=== PATIENT | female | born 1995 | race Caucasian/White ===

== ENCOUNTER 2024-10-22 14:09 | Outpatient (RCR) | payer BC, SELFPAY | END 2025-01-15 17:50 | disposition other institution (70) | LOC: ANHOBOP 14:09 | PROVIDERS: PCP Nurse Practitioner Family; Visit Provider Obstetrics & Gynecology | DX: O36.8130 Decreased fetal movements, third trimester, not applicable or unspecified (principal); Z3A.29 29 weeks gestation of pregnancy | CPT/HCPCS: 59025 ==

== ENCOUNTER 2024-10-28 05:24 | Observation (INO) | payer BC, SELFPAY ==
--- NOTE | ~2024-10-28 | US_ITS ---
Limited Abdominal Sonogram: Real-time sonographic imaging of the right upper quadrant was performed. Clinical History: Abdominal pain Findings: The liver appears normal with no evidence of mass lesion or bile duct dilatation. Main por angelica vein demonstrates normal direction of flow. The gallbladder is well distended, and contains small stones/sludge. The common bile duct measures 5 mm. The visualized pancreas, aorta, and IVC are unre markable. Right kidney measures 10.1 cm in length with probable minimal hydronephrosis. Impression: Cholelithiasis and gallbladder sludge. Minimal right hydronephrosis. Reviewed, dictated and finalized at location . Impression: Cholelithiasis and gallbladder sludge. Minimal right hydronephrosis.
--- OUTSIDE RECORDS SUMMARY | 2024-10-28 05:33 | XMS_ITS | Patient Health Record ---
Author Organization [facility] Address [address] [place] [address] Care Team Providers Care Avionics Systems Technician Name Role Phone Ariana Pinon Primary Care Provider Allergies No Known Allergies Reason For Referral No Information Medications Medication SIG (Take, Route, Frequency, Duration) Notes Start Date End Date Status Venlafaxine HCl ER 75 MG 1 tablet with f ood Orally Once a day; Duration: 21 days Active FLUoxetine HCl 10 MG 1 capsule Orally On ce a day; Duration: 30 days 11/04/2022 Active Venlafaxine HCl ER 37.5 MG 1 capsule wit h food Orally Once a day; Duration: 14 days 11/04/2022 Active Ergocalciferol 1.25 MG (23322 UT) 1 capsule Orally once a week; Duration: 30 days Active Social History Sex Assigned At : Social History Observation Description Sex Assigned At Female Problems Problem Type SNOMED Code ICD Code Onset Dates Problem Status W/U Status Risk Notes Problem Obsessive-com pulsive disorder (430149695) 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
--- OUTSIDE RECORDS SUMMARY | 2024-10-28 05:33 | XMS_ITS | Clinical Summary ---
Author Organization [facility] Address [address] [place] [address] Care Team Providers Care Service Engineer Name Role Phone Nkechi Powell BAKERY WORKER Primary Care Provider [phone] Allergies No known active allergies Medications Magnesium Gluconate (MAGNESIUM 27 OR) Take as directed. Active vitamin ( PLUS) 27-1 MG tablet Take 1 tablet by mouth daily. Active Active Problems Problem Noted Date Diagnosed Date Mixed obsessional thoughts and acts 04/17/2017 PCOS (polycystic ovarian syndrome) 04/17/2014 Estimated Date of Delivery Comme nts Yes 01/04/2025 Resolved Problems Problem Noted Date Diagnosed Date Resolved Date Closed fracture of lower end of left radius with routine healing 09/19/2019 12/30/2022 Encounters Date Type Department Care Team Description 10/01/2024 Scan [facility] INFO SRVCS Scanned, Doc Med Group from Last 3 Months Immunizations Immunization Administration Dates Next Due Tdap (Adacel) 06/09/2019 Family History Medical History Relation Comments No Known Problems Brother 1 No Known Problems Brother 2 Eating disorder Brother 3 Premature CHD Brother 3 Arthritis Father Alzheimers Maternal Grandfather Hypertension Maternal Grandfather CHF Maternal Grandmother Diabetes Maternal Grandmother Anxiety Mother Diabetes Mother Hypertension Mother Relation Status Comments Brother 1 Alive Brother 2 Alive Brother 3 Alive Father Maternal Grandfather Maternal Grandmother Mother Alive Sister Alive Social History Tobacco Use Types Packs/Day Years Used Date Smoking Tobacco: Never Smokeless Tobacco: Never Tobacco Cessation:Counseling Given: Not Answered Alcohol Use Standard Drinks/Week Comments Yes 0 (1 standard drink = 0.6 oz pur e alcohol) rare PHQ-2 Answer Date Recorded Patient Health Questionnaire-2 Score 0 05/22/2024 Estimated Date of Delivery Comme nts Yes 01/04/2025 Sex and Gender Information Value Date Recorded Sex Assigned at Not on file Legal Sex Female 4:05 PM MILLSTONE CLE[employer]ER Gender Identity Not on file Sexual Orientation Not on file Last Filed Vital Signs Vital Sign Reading Time Taken Comments Blood Pressure 112/76 07/12/2024 9:32 PM CDT Pulse 92 07/12/2024 9:32 PM CDT Temperature 36.7 C (98 F) 07/12/2024 9:32 PM CDT Respiratory Rate 16 07/12/2024 9:32 PM CDT Oxygen Saturation 98% 07/12/2024 9:32 PM CDT Inhaled Oxygen Concentration - - Weight 59.4 kg (131 lb) 07/12/2024 9:32 PM CDT Height 172.7 cm (5' 8) 07/12/2024 9:32 PM CDT Body Mass Index 19.92 07/12/2024 9:32 PM CDT Plan of Treatment Health Maintenance Due Date Last Done Comments Cervical Cancer Screening Pa p Smear (Age 21 to 29) Every 3 Years 1995 Cervical Cancer Screening 1995 Annual Physical 1998 Hepatitis C 2013 Hepatitis B Vaccines (1 of 3 - 19+ 3-dose series) 2014 COVID-19 Vaccine (2023-2 5 season) 2023 DTaP, Tdap and Td Vaccines ( 2 - Td or Tdap) 06/09/2029 06/09/2019 PHQ-2 (Physician Grayling) Completed 05/22/2024 HPV Vaccines Aged Out No longer eligi ble based on patient's age to complete this topic Meningococcal B Vaccine Aged Out No l onger eligible based on patient's age to complete this topic Meningococcal Vaccine Aged Out No angela grisel eligible based on patient's age to complete this topic Pneumococcal Vaccine: Pediat rics (0 to 5 Years) and At-Risk Patients (6 to 49 Years) Aged Out No longer eligi ble based on patient's age to complete this topic RSV Immunization or 60+ Years (No Doses Required) Completed RSV Immunizations Under 20 Months Aged Out No longer eligible based on patient's age to complete this topic Insurance [place] [address] [place] [address] Care Teams Service Engineer Relationship Specialty Start Date End Date Nkechi Powell FNP [address] [place] [address] [place] [address] PCP - General Nurse Practitioner Family 12/30/22
[2024-10-28 06:01] VITALS: BP 104/59; PULSE 71
[2024-10-28 06:15] VITALS: BP 112/68; PULSE 88
[2024-10-28 06:31] VITALS: BP 100/61; PULSE 84
[2024-10-28 06:42] VITALS: BMI 21.4
--- NOTE | 2024-10-28 06:43 | OBADM ---
This patient, Barbara Iniguez, admitted to the OB room OB Post 117 for observation. Patient/family oriented to hospital policies and general routines including ID bracelet, bed and alarms, visiting hours, pain management, procedures, bathroom and other care routines, personal items, smoking policy, room service/diet, and visiting hours. Patient/Family are encouraged to report perceived risks to care and to ask questions if they do not understand what they are told or what they should do.
[2024-10-28 06:44] LABS: Hematocrit 33.0 % (37.0-47.0); Hemoglobin 11.0 g/dL (12.0-15.0); Immature Granulocyte Percent A 1.1 % (0-0.5); Lymphocytes Absolute Auto 1.02 K/mm3 (0.9-3.2); Mean Corpuscular HGB Conc 33.3 g/dl (32-36); Mean Corpuscular Hemoglobin 31.1 pg (26-34); Mean Corpuscular Volume 93.2 fl (80-100); Nucleated Red Blood Cells Absolute Auto 0.000 K/mm3 (0.0-0.012); Nucleated Red Blood Cells Perc 0.0 % (0.0-0.2); Platelet Count Result 205 k/mm3 (150-375); Red Blood Count 3.54 M/mm3 (4.2-5.4); White Blood Count 13.5 K/mm3 (4.5-10.0)
[2024-10-28 06:45] VITALS: BP 106/65; PULSE 79
--- NOTE | 2024-10-28 06:47 | PM.OBTRLD ---
OB - Triage/Final Diagnosis Visit Information Date of evaluation: 10/28/24 Reason for evaluation: other (Abdominal pain) Comments/Additional reasons for admission: I have assessed the risk for this patient, Barbara Iniguez, and determined that she would benefit from observation care. Evaluation Laboratory results: Laboratory Tests 10/28/24 06:38 WBC 13.5 H RBC 3.54 L Hgb 11.0 L Hct 33.0 L MCV 93.2 MCH 31.1 MCHC 33.3 RDW 12.1 Plt Count 205 MPV 9.3 Immature Gran % (Auto) 1.1 H Neut % (Auto) 84.8 H Lymph % (Auto) 7.[address] [place] % (Auto) 5.7 Eos % (Auto) 0.5 Baso % (Auto) 0.3 Lymph # (Auto) 1.02 [place] # (Auto) 0.8 H Eos # (Auto) 0.1 Baso # (Auto) 0.0 Abs Immat Gran (auto) 0.15 H Absolute Neuts (auto) 11.4 H Absolute Nucleated RBC 0.000 Nucleated RBC % 0.0 Vital signs: Vital Signs - 24 hr 10/28/24 06:01 10/28/24 06:15 10/28/24 06:31 Pulse Rate 71 88 84 Blood Pressure 104/59 L 112/68 100/61 10/28/24 06:45 Pulse Rate 79 Blood Pressure 106/65
[2024-10-28 06:50] LABS: Add Urine Microscopic? YES; Appearance Urine Cloudy (Clear); Glucose Urine UA Negative (Negative); Leukocyte Esterase Ur 3+ LEU/UL (Negative); Need Manual Microscopic Reviewed; Nitrate Urine Negative (Negative); Specific Grav Ur 1.017 (1.001-1.035)
[2024-10-28 07:00] VITALS: BP 106/61; PULSE 78
[2024-10-28 07:00] LABS: Alanine Aminotransferase 13 U/L (6-35); Albumin Level 3.6 g/dL (3.5-5.1); Alkaline Phosphatase 80 U/L (38-126); Amylase 70 U/L (30-110); Anion Gap 6 mmol/L (4-12); Aspartate Amino Transferase 22 U/L (14-36); Bilirubin,Total 0.3 mg/dL (0.2-1.3); Blood Urea Nitrogen 7 mg/dL (7-17); Calcium 9.5 mg/dL (8.4-10.2); Carbon Dioxide 23 mmol/L (22-30); Chloride 105 mmol/L (98-107); Estimated CRCL calculation 135 ml/min; Estimated Glomerular Filt Rate > 60; Glucose 90 mg/dL (65-110); Lipase 68 U/L (23-300); Potassium 3.9 mmol/L (3.4-5.0); Sodium 134 mmol/L (137-145); Total Protein 6.4 g/dL (6.3-8.2)
[2024-10-28] MEDS: NITROFURANTOIN MONOHYD MACROCR 100 MG CAP PO (08:40)
[2024-11-02 02:07] LABS: Total Bile Acids 2.5 umol/L (.)
== END 2024-10-28 08:42 | disposition home or self-care (01) ==
PROVIDERS: Admitting Provider Obstetrics & Gynecology; PCP Nurse Practitioner Family; Visit Provider Obstetrics & Gynecology
DX: O26.893 Other specified pregnancy related conditions, third trimester (principal); R10.9 Unspecified abdominal pain; Z3A.30 30 weeks gestation of pregnancy
CPT/HCPCS: 36415; 76705; 80053; 81001; 82150; 82542; 83690; 85025; 87086; A9270; G0378; G0379

== ENCOUNTER 2025-01-02 02:44 | Inpatient (IN) | payer BC, SELFPAY ==
[2025-01-02] VITALS (147 sets, daily range): BP systolic 95–149; BP diastolic 54–103; PULSE 51–137; RESP 16–18; TEMP 36.2–37; O2SAT 78–100; BMI 21.3
--- NOTE | 2025-01-02 02:52 | PC.NURSE ---
RN discussed valtrex rx with patient. Pt stated that she had been prescribed this medication due to a pending HSV test as a result of her partner having a cold sore. Pt stated that she has tested negative for HSV. A bright light exam was performed and no lesions were noted at this time.
--- OUTSIDE RECORDS SUMMARY | 2025-01-02 03:03 | XMS_ITS | Patient Health Record ---
Author Organization [facility] Address [address] [place] [address] Care Team Providers Care Body Corporate Manager Name Role Phone Ariana Pinon Primary Care [...] 14 days 11/04/2022 Active Ergocalciferol 1.25 MG (64877 UT) 1 capsule Orally once a week; Duration: 30 days Active Social History Sex Assigned At : Social History Observation Description Sex Assigned At Female Problems Problem Type SNOMED Code ICD Code Onset Dates Problem Status W/U Status Risk Notes Problem Obsessive-com pulsive disorder ([id number]) Mixed obsessional thoughts and acts (F42.2) Active confirmed Plan Of Treatment No Information Insurance Providers Payer Name Payer Address Payer Phone Subscriber Number Group Number Insured Name Patient Relationship to Insured Coverage Start Date Coverage End Date [facility] [address] [place] [address] [id number] Barbara Light Self - patient is the insured 1 Medical (General) History Surgical History Surgery Date(Month/Year)
--- NOTE | 2025-01-02 03:09 | LDADM ---
This patient, Barbara Iniguez, was admitted to Labor/Delivery/Recovery 105 on 01/02/25 at 02:44. Plans for labor, pain management and were discussed with patient. Patient/family oriented to hospital policies and general routines including ID bracelet, bed and alarms, visiting hours, pain management, procedures, bathroom and other care routines, personal items, smoking policy, room service/diet and guest tray routines, security routines, and visiting hours. Patient/Family are encouraged to report perceived risks to care and to ask questions if they do not understand what they are told or what they should do. See OBIX for further documentation.
[2025-01-02 03:20] LABS: Hematocrit 34.1 % (37.0-47.0); Hemoglobin 11.2 g/dL (12.0-15.0); Immature Granulocyte Percent A 0.6 % (0-0.5); Lymphocytes Absolute Auto 1.57 K/mm3 (0.9-3.2); Mean Corpuscular HGB Conc 32.8 g/dl (32-36); Mean Corpuscular Hemoglobin 27.2 pg (26-34); Mean Corpuscular Volume 82.8 fl (80-100); Nucleated Red Blood Cells Absolute Auto 0.000 K/mm3 (0.0-0.012); Nucleated Red Blood Cells Perc 0.0 % (0.0-0.2); Platelet Count Result 217 k/mm3 (150-375); Red Blood Count 4.12 M/mm3 (4.2-5.4); White Blood Count 11.2 K/mm3 (4.5-10.0)
[2025-01-02 04:07] LABS: Syphilis IgG/IgM Antibody Non-Reactive (Nonreactive)
--- NOTE | 2025-01-02 05:59 | P.PNAN_ITS ---
Anes - Initial Pre Proc Eval Procedure: labor epidural Date/Time: 01/02/25 05:59 Surgeon: Gold Quarles MD Pre Op Diagnosis: labor pain Pre Op Diagnosis: ROM Patient Data Age: 29 Gender: F Height: 1.73 m Weight: 63.63 kg Last Vital Signs Temp 36.6 C 01/02/25 05:46 Pulse 75 01/02/25 05:45 BP 129/78 01/02/25 05:45 Pulse Ox 100 01/02/25 05:56 O2 Del Method Room Air 01/02/25 03:09 Allergies Allergy/AdvReac Type Severity Reaction Status Date / Time No Known Allergies Allergy Verified 12/26/24 13:29 Home Medications ?Medication ?Instructions ?Recorded ?Confirmed ?Type No Home Medications 10/28/24 12/26/24 H istory Laboratory Tests 01/02/25 03:16 WBC 11.2 H K/mm3 (4.5-10.0) RBC 4.12 L M/mm3 (4.2-5.4) Hgb 11.2 L g/dL (12.0-15.0) Hct 34.1 L % (37.0-47.0) MCV 82.8 fl (80-100) MCH 27.2 pg (26-34) MCHC 32.8 g/dl (32-36) RDW 13.2 % (11.5-14.5) Plt Count 217 k/mm3 (150-375) MPV 10.3 fl (7.4-10.4) Immature Gran % (Auto) 0.6 H % (0-0.5) Neut % (Auto) 76.8 H % (45.5-73.1) Lymph % (Auto) 14.1 L % (18.3-44.2) [place] % (Auto) 7.5 % (2.6-8.5) Eos % (Auto) 0.6 % (0-4.4) Baso % (Auto) 0.4 % (0.2-1.2) Lymph # (Auto) 1.57 K/mm3 (0.9-3.2) [place] # (Auto) 0.8 H K/mm3 (0.1-0.6) Eos # (Auto) 0.1 K/mm3 (0-0.3) Baso # (Auto) 0.1 K/mm3 (0.0-0.1) Abs Immat Gran (auto) 0.07 H K/mm3 (0.00-0.031) Absolute Neuts (auto) 8.6 H K/mm3 (1.3-6.7) Absolute Nucleated RBC 0.000 K/mm3 (0.0-0.012) Nucleated RBC % 0.0 % (0.0-0.2) Syphilis IgG/IgM Ab Non-reactive (Nonreactive) Blood Type O Positive Antibody Screen Negative Patient hx anesthesia problems: none Family hx anesthesia problems: none Results Review: All pre-operative results and documents have been reviewed as part of the pre- operative evaluation. [facility] Family History Family History (Updated 12/26/24 @ 13:31 by Camilla Lorenz RN) Mother Diabetes mellitus Grandparent Diabetes mellitus Congestive cardiac failure Social History Social History Smoking status: Never smoker Substance use: never Do You Feel Safe in your Home?: Yes Lack of Transportation: No Lack of Food: Never True Current Housing: I Have Housing Concerned About Future Housing: No Difficulty Paying Gas/Electric Bills: No Difficulty Paying for Meds: No Currently Unemployed: No Education: Master's Degree or Higher Difficulty w/ Childcare or Family Care: No Spiritual care concerns: No Anes - Eval Final PreProcedure Day of Procedure 01/02/25 05:59 Heart: regular rate and rhythm Lungs: clear to auscultation and normal air movement Airway: Mallampati scale class II Neurological: alert and oriented ASA classification: II Anesthetic plan: proceed Anesthesia type and monitoring: regional epidural and standard monitoring Results Review: All pre-operative results and documents have been reviewed as part of the pre- operative evaluation. Informed Consent: The patient's anesthetic plan and its attendant risks and benefits were discussed with the patient/family/POA. Questions were solicited and answers provided to the satisfaction of the patient/family/POA.
[2025-01-02] MEDS: OXYTOCIN 30 UNITS/NS 500 ML 30 UNITS/500 ML BAG IV CONT (07:05)
[2025-01-02] MEDS: LACTATED RINGERS 1,000 ML 125 ML IV CONT (07:05)
--- NOTE | 2025-01-02 07:38 | P.HP_ITS ---
H&P: HPI History of Present Illness Date/Time: 01/02/25 07:38 Chief Complaint: Rupture of membranes at term Narrative: This is a 29-year-old 1 para 0 whose last menstrual. She has an EDC of 01/03/2025 who presents at 39 and half weeks gestation with spontaneous rupture membranes about a 100 she has progressed and now slowed Pitocin has been begun. She is negative for group B strep and had a normal diabetic test NIPT was low risk Review of Systems Review of Systems: All systems reviewed & are unremarkable except as noted in HPI and below PMFSH Family History Family History Mother Diabetes mellitus Grandparent Diabetes mellitus Congestive cardiac failure Social History Social History Smoking status: Never smoker Substance use: never Do You Feel Safe in your Home?: Yes Lack of Transportation: No Lack of Food: Never True Current Housing: I Have Housing Concerned About Future Housing: No Difficulty Paying Gas/Electric Bills: No Difficulty Paying for Meds: No Currently Unemployed: No Education: Master's Degree or Higher Difficulty w/ Childcare or Family Care: No Spiritual care concerns: No Meds Home Medications and Allergies Home Medications ?Medication ?Instructions ?Recorded ?Confirmed ?Type No Home Medications 10/28/24 12/26/24 H istory Allergies Allergy/AdvReac Type Severity Reaction Status Date / Time No Known Allergies Allergy Verified 12/26/24 13:29 Vital Signs Vital Signs - 24 hr 01/02/25 03:03 01/02/25 03:08 01/02/25 03:09 Temperature Pulse Rate Blood Pressure Pulse Oximetry 95 94 Oxygen Delivery Room Air 01/02/25 03:13 01/02/25 03:18 01/02/25 03:21 Temperature Pulse Rate 68 Blood Pressure 120/74 Pulse Oximetry 92 94 Oxygen Delivery 01/02/25 03:23 01/02/25 03:28 01/02/25 03:30 Temperature Pulse Rate 77 Blood Pressure 106/75 Pulse Oximetry 93 92 Oxygen Delivery 01/02/25 03:33 01/02/25 03:38 01/02/25 03:39 Temperature Pulse Rate Blood Pressure Pulse Oximetry 95 96 96 Oxygen Delivery 01/02/25 03:44 01/02/25 03:45 01/02/25 03:49 Temperature Pulse Rate 77 Blood Pressure 118/77 Pulse Oximetry 97 94 Oxygen Delivery 01/02/25 03:50 01/02/25 03:54 01/02/25 03:59 Temperature 97.1 F L Pulse Rate Blood Pressure Pulse Oximetry 96 95 Oxygen Delivery 01/02/25 04:00 01/02/25 04:04 01/02/25 04:09 Temperature Pulse Rate 81 Blood Pressure 115/81 Pulse Oximetry 95 99 Oxygen Delivery 01/02/25 04:14 01/02/25 04:15 01/02/25 04:19 Temperature Pulse Rate 78 Blood Pressure 122/80 Pulse Oximetry 99 95 Oxygen Delivery 01/02/25 04:24 01/02/25 04:29 01/02/25 04:30 Temperature Pulse Rate 80 Blood Pressure 116/79 Pulse Oximetry 96 96 Oxygen Delivery 01/02/25 04:36 01/02/25 04:41 01/02/25 04:45 Temperature Pulse Rate 78 Blood Pressure 122/80 Pulse Oximetry 100 100 Oxygen Delivery 01/02/25 04:46 01/02/25 04:51 01/02/25 04:56 Temperature Pulse Rate Blood Pressure Pulse Oximetry 100 100 100 Oxygen Delivery 01/02/25 05:00 01/02/25 05:01 01/02/25 05:06 Temperature Pulse Rate 80 Blood Pressure 118/83 Pulse Oximetry 100 100 Oxygen Delivery 01/02/25 05:11 01/02/25 05:15 01/02/25 05:16 Temperature Pulse Rate 74 Blood Pressure 129/84 Pulse Oximetry 100 100 Oxygen Delivery 01/02/25 05:21 01/02/25 05:26 01/02/25 05:30 Temperature Pulse Rate 61 Blood Pressure 123/85 Pulse Oximetry 99 100 Oxygen Delivery 01/02/25 05:31 01/02/25 05:36 01/02/25 05:41 Temperature Pulse Rate Blood Pressure Pulse Oximetry 100 100 100 Oxygen Delivery 01/02/25 05:45 01/02/25 05:46 01/02/25 05:51 Temperature 97.9 F Pulse Rate 75 Blood Pressure 129/78 Pulse Oximetry 100 100 Oxygen Delivery 01/02/25 05:56 01/02/25 06:00 01/02/25 06:01 Temperature Pulse Rate 64 Blood Pressure 129/81 Pulse Oximetry 100 100 Oxygen Delivery 01/02/25 06:06 01/02/25 06:11 01/02/25 06:15 Temperature Pulse Rate 63 Blood Pressure 128/81 Pulse Oximetry 100 100 Oxygen Delivery 01/02/25 06:16 01/02/25 06:21 01/02/25 06:26 Temperature Pulse Rate Blood Pressure Pulse Oximetry 95 99 100 Oxygen Delivery 01/02/25 06:30 01/02/25 06:31 01/02/25 06:36 Temperature Pulse Rate 58 L Blood Pressure 126/83 Pulse Oximetry 100 100 Oxygen Delivery 01/02/25 06:38 01/02/25 06:41 01/02/25 06:45 Temperature 97.4 F L Pulse Rate 62 Blood Pressure 130/82 Pulse Oximetry 100 Oxygen Delivery 01/02/25 06:46 01/02/25 06:51 01/02/25 06:56 Temperature Pulse Rate Blood Pressure Pulse Oximetry 100 100 95 Oxygen Delivery 01/02/25 07:00 01/02/25 07:01 01/02/25 07:04 Temperature Pulse Rate 69 Blood Pressure 129/80 Pulse Oximetry 97 100 Oxygen Delivery 01/02/25 07:09 01/02/25 07:14 01/02/25 07:15 Temperature Pulse Rate 82 Blood Pressure 119/94 H Pulse Oximetry 100 100 Oxygen Delivery 01/02/25 07:19 01/02/25 07:24 01/02/25 07:29 Temperature Pulse Rate Blood Pressure Pulse Oximetry 99 99 99 Oxygen Delivery 01/02/25 07:30 01/02/25 07:34 Temperature Pulse Rate 101 H Blood Pressure 142/103 H Pulse Oximetry 98 Oxygen Delivery Exam Const: General: cooperative, healthy appearing and comfortable Nutritional Appearance: average body habitus Orientation/consciousness: oriented to person, oriented to place and oriented to time HENMT: Head: normal to inspection Resp: Effort & Inspection: normal respiratory effort Cardio: Rate: regular rate Rhythm: regular rhythm Heart sounds: S1 normal heart sound present and S2 normal heart sound present GI: Inspection: normal to inspection (Soft gravid uterus) : External Female Exam: normal external appearance Speculum Exam - Vagina: normal appearance of the vagina Speculum Exam - Cervix: normal appearance of the cervix (Cervix 5/100/1. Clear fluid seen. FHTs reassuring) H&P: Results Labs Labs: Short CBC 01/02/25 Range/Units 03:16 WBC 11.2 H (4.5-10.0) K/mm3 Hgb 11.2 L (12.0-15.0) g/dL Hct 34.1 L (37.0-47.0) % Plt Count 217 (150-375) k/mm3 Assessment and Plan Assessment and plan (1) Term : Code(s): Z34.90 - Encounter for supervision of normal , unspecified, unspecified trimester Status: Acute Plan Spontaneous vaginal delivery expected
[2025-01-02] MEDS: OXYTOCIN 30 UNITS/NS 500 ML 30 UNITS/500 ML BAG 999 UNITS IV CONT (10:00)
[2025-01-02] MEDS: LIDOCAINE 1% LOCAL INJ 10 ML VIAL 20 ML INFILTRATE (10:00)
--- NOTE | 2025-01-02 10:09 | PM.OBPRVD ---
OB - Vaginal Delivery Note Procedure Delivery date: 01/02/25 Induction method: None Delivery monitor: External FHT and External Uterine Route of delivery: Episiotomy description: None Laceration Description: Perineal - 1st Degree Delivery repair: vicryl Specimen: No Quantitative Blood Loss (ml): 62 Anesthesia type: Local Disposition: Floor Complications: No immediate complications Narrative: Patient was admitted at term in spontaneous rupture membranes about 0 100 she progressed unremarkable 1st stage of labor to completely dilated pushed delivered head spontaneously in the BECKY position. Anterior posterior shoulder delivered spontaneously. Cord clamped x2 had the best of table given Apgars of 8 ln2shqina 9 [id number]. Cord blood was drawn. Placenta delivered intact spontaneously. Twenty of Pitocin placed IV to help firm the uterus a 1st degree laceration was noted was instilled 4% xylocaine anesthesia and layer [id number] sutures were placed blood loss was 62cc. All sponge, needle, instrument counts were correct. There were no immediate complications [place] Baby Date of : 01/02/25 Time of : 09:55 Gestational Age by Date: 39 gender: Female presentation: vertex position: Right Occiput Anterior Placenta delivery description: Spontaneous Cord Vessel Description: 3 Vessels score one minute: 8 score five minutes: 9
--- NOTE | 2025-01-02 10:12 | PM.DS ---
DS: Admitting Diagnosis Discharge Date 01/03/2025 Admitting Diagnosis Term DS: Discharge Diagnosis Discharge Diagnosis (1) Term : Code(s): Z34.90 - Encounter for supervision of normal , unspecified, unspecified trimester Status: Acute DS: Summary Hospital Course Reason for hospitalization: Patient was admitted with spontaneous rupture membranes about 100 progressed to vaginal delivery with no epidural Hospital Course: Patient's hospital course was unremarkable. She remained afebrile. She was up, voiding without difficulty, eating regular diet, ambulating, and generally without complaints. Time Spent with Patient Time attestation: Total time spent providing and/or coordinating discharge services: Exam Const: General: cooperative, healthy appearing and comfortable Nutritional Appearance: average body habitus Orientation/consciousness: oriented to person, oriented to place and oriented to time HENMT: Head: normal to inspection Resp: Effort & Inspection: normal respiratory effort Cardio: Rate: regular rate Rhythm: regular rhythm Heart sounds: S1 normal heart sound present and S2 normal heart sound present GI: Inspection: normal to inspection (Soft gravid uterus) : External Female Exam: normal external appearance Speculum Exam - Vagina: normal appearance of the vagina Speculum Exam - Cervix: normal appearance of the cervix (Cervix 5/100/1. Clear fluid seen. FHTs reassuring) DS: Data Data Completed and Pending Labs on day of discharge: Labs from last 24 hours 01/02/25 03:16 WBC 11.2 H RBC 4.12 L Hgb 11.2 L Hct 34.1 L MCV 82.8 MCH 27.2 MCHC 32.8 RDW 13.2 Plt Count 217 MPV 10.3 Immature Gran % (Auto) 0.6 H Neut % (Auto) 76.8 H Lymph % (Auto) 14.1 L [place] % (Auto) 7.5 Eos % (Auto) 0.6 Baso % (Auto) 0.4 Lymph # (Auto) 1.57 [place] # (Auto) 0.8 H Eos # (Auto) 0.1 Baso # (Auto) 0.1 Abs Immat Gran (auto) 0.07 H Absolute Neuts (auto) 8.6 H Absolute Nucleated RBC 0.000 Nucleated RBC % 0.0 Syphilis IgG/IgM Ab Non-reactive Blood Type O Positive Antibody Screen Negative Discharge Plan Discharge Attending physician on discharge: Gold Renee Discharging Clinician: Gold Renee Patient Disposition: Home Activity: may shower and pelvic rest Diet: heart healthy Wound Care Instructions: follow printed instructions Patient Instructions: Antibiotic Form Patient Language: [place] Stand Alone Forms: General Discharge Information Follow-up/Referrals: Gold Renee MD [Physician, DIRECTOR [employer]] Discharge Medications: New ferrous sulfate [iron] 325 mg (65 mg iron) tablet 325 mg PO DAILY Qty: 60 0RF No Action No Home Medications Date of admission: 01/02/25 02:44 Primary Care Provider: SherryNkechi Admitting Provider: Gold Renee Attending physician on admission: Gold Renee Condition: Stable
[2025-01-02] MEDS: OXYTOCIN 30 UNITS/NS 500 ML 30 UNITS/500 ML BAG 125 UNITS IV CONT (10:37)
[2025-01-02] MEDS: IBUPROFEN 600 MG TABLET PO (11:04)
--- NOTE | 2025-01-02 12:26 | OBPPTRN ---
Patient transferred to post room #285 via wheelchair. Support person present. Oriented to unit, room, information board, rooming in, admission packet and security measures. Patient verbalizes understanding.
[2025-01-02] MEDS: DOCUSATE SODIUM 100 MG CAPSULE PO (15:06)
[2025-01-02] MEDS: ACETAMINOPHEN 325 MG TABLET 650 MG PO (15:06)
[2025-01-02] MEDS: CALCIUM CARBONATE (TUMS) 500 MG (200 MG ELEMENTAL) PO (16:10)
[2025-01-03 05:02] LABS: Hematocrit 30.2 % (37.0-47.0); Hemoglobin 9.7 g/dL (12.0-15.0)
--- NOTE | 2025-01-03 07:08 | P.PNOB_ITS ---
OB - PN: Subj Subjective Date/time seen: 01/03/25 07:08 Patient comments: no complaints, pain well controlled and tolerating diet [place] baby status: doing well OB - PN: Obj Data Labs 01/03/25 04:12 Labs: Laboratory Results - last 24 hr 01/03/25 04:12 Hgb 9.7 L Hct 30.2 L OB - PN A/P Assessment and Plan (1) Term : Code(s): Z34.90 - Encounter for supervision of normal , unspecified, unspecified trimester Status: Acute Plan ROUTINE CARE Time Spent With Patient Time: Total time spent is greater than 50% in coordination of care (as documented) at patient's floor/unit and/or counseling patient: Review of Systems 2 Review of Systems: All systems reviewed & are unremarkable except as noted in HPI and below Exam 2 Const: General: cooperative, healthy appearing and comfortable Nutritional Appearance: average body habitus Orientation/consciousness: oriented to person, oriented to place and oriented to time HENMT: Head: normal to inspection Resp: Effort & Inspection: normal respiratory effort Cardio: Rate: regular rate Rhythm: regular rhythm Heart sounds: S1 normal heart sound present and S2 normal heart sound present GI: Inspection: normal to inspection (Soft gravid uterus) : External Female Exam: normal external appearance Speculum Exam - Vagina: normal appearance of the vagina Speculum Exam - Cervix: normal appearance of the cervix (Cervix 5/100/1. Clear fluid seen. FHTs reassuring)
[2025-01-03 07:50] VITALS: BP 112/76; PULSE 61; RESP 16; TEMP 36.6; O2SAT 99
[2025-01-03] MEDS: DOCUSATE SODIUM 100 MG CAPSULE PO ×2 (08:43→16:35)
[2025-01-03] MEDS: MULTIVIT/MIN/PREN/FOL AC/IRON TABLET 1 TAB PO (08:43)
--- NOTE | 2025-01-03 12:45 | PC.NURSE ---
Consulted with patient to assess needs related to . Discussed with mother her successes, concerns and any questions she has. Mother was concerned about latch being shallow and feeling pinchy. We reviewed working with the infant, supporting breast, protecting her nipples with an optimal deep latch, good positioning, and good hand washing. Encouraged understanding the benefits of skin to skin, responding to feeding cues, frequencies of feeding 8-12 times in 24 hours (approximately 2-3 hours), duration of feedings, milk production, intake/output feeding sheet and signs of adequate intake encouraging swallowing at the breast. Reviewed positioning and alignment, supporting breast, off-centered (asymmetrical latch) and leading with the chin with big, open, wide gape. Infant latched optimally to the [right] breast in [cross cradle] position. Education given to the mother of how to visualize the suckling (with good rocking jaw motion) swallows (dropping of the lower jaw) and how to listen for drinking at the breast (the ka sound). The was [able] to maintain latch without discomfort to mother. Nipple care reviewed with optimal latch, good positioning and using clean hands when touching her breast. Resources used to facilitate learning were used from the [visual handouts/ tool/mom and baby guide]. Mother voiced understanding of the education shared, to call for assistance if the infant does not latch or if there is discomfort with . Reported to the Primary RN.
[2025-01-03 18:45] VITALS: BP 108/78; PULSE 63; RESP 16; TEMP 36.7; O2SAT 100
[2025-01-04] MEDS: DOCUSATE SODIUM 100 MG CAPSULE PO (08:32)
[2025-01-04] MEDS: MULTIVIT/MIN/PREN/FOL AC/IRON TABLET 1 TAB PO (08:32)
[2025-01-04 08:35] VITALS: BP 112/69; PULSE 59; RESP 18; TEMP 36.8; O2SAT 100
--- NOTE | 2025-01-04 09:35 | PC.NURSE ---
Consulted with mother concerning needs and she shared her ability to independently latch infant optimally. Latch seen in cradle hold on the right breast at this time. Mother is feeding appropriately for growth of infant and understands stimulating to eat if needed. has had appropriate feedings in the last 24 hours meets the outcomes for weight, output, blood sugar and jaundice at this time. Reinforced understanding of milk production, transition of milk, signs of adequate intake, transition of stool, mastitis, responsive watching for feeding cues, feeding 8-10 times every 24 hours, community resources (declines [facility] referral), and when to call a provider using the resource of the feeding sheet along with the mom and baby guide. She has a breast pump for personal use. Mother voiced understanding of the information shared, is confident to continue effectively her infant at home, when to call for assistance, denies any additional assistance or education at this time. Reported to the Primary RN.
--- NOTE | 2025-01-04 11:02 | P.PNOB_ITS ---
OB - PN: Subj Subjective Date/time seen: 01/04/25 11:02 Patient comments: no complaints and pain well controlled baby status: doing well OB - PN: Obj Data Labs 01/03/25 04:12 OB - PN A/P Plan day: 2 Plan: routine care, discharge home and follow up 6 weeks Time Spent With Patient Time: Total time spent is greater than 50% in coordination of care (as documented) at patient's floor/unit and/or counseling patient: Exam 2 : Bimanual exam- vagina & uterus: other (Uterus firm, nt @U)
== END 2025-01-04 12:25 | disposition home or self-care (01) | DRG 807 ==
LOC: ANHLDR 01-06 09:30 → ANHOB2 01-06 09:30
PROVIDERS: Admitting Provider Obstetrics & Gynecology; PCP Nurse Practitioner Family; Visit Provider Obstetrics & Gynecology Gynecology
DX: O70.0 First degree perineal laceration during delivery (principal); Z37.0 Single live birth; Z3A.39 39 weeks gestation of pregnancy
CPT/HCPCS: 36415; 85014; 85018; 85025; 86593; 86850; 86900; 86901; A9270; J2003; J2590; J7120